=== PATIENT | female | born 1960 | race American Indian/Alaskan Native ===

== ENCOUNTER 2016-10-19 18:07 | Inpatient (IN) | payer MEDICARE ==
[2016-10-19] MEDS ORDERED: TORADOL IM ONE (22:02)
[2016-10-19] MEDS ORDERED: TORADOL ONE (22:02)
[2016-10-19] MEDS ORDERED: NORCO 5/325 PO ONE (22:07)
--- NOTE | 2016-10-19 22:10 | Emergency Department Report ---
Chief Complaint: Upper Respiratory Infection Stated Complaint: DARK BROWN URINE/MUSCLE ACHE - HPI History of Present Illness: Patient presents with multiple complaints including dark brown urine x 5 days, worsening body aches x 1 week, cough productive of greenish-yellow sputum, chest congestion, cold-chills, fever, nausea. States taking NyQuil. During MSE Patient stated to grab her left stomach stating she is having cramping pain due to her hernia. Reports hysterectomy many years ago. - Exam Vital Signs: Vital Signs 10/19/16 18:12 Temperature 97.6 F Pulse Rate 102 H Respiratory 18 Rate Blood Pressure 155/103 O2 Sat by Pulse 96 Oximetry Physical Exam: General: In some pain discomfort. NAD. Heart: RRR. Lungs: Equal sound b/l. MSE screening note: Focused history and physical exam performed. Due to findings the following was ordered: ED Medical Decision Making - Medical Decision Making Patient to be seen by MD in main ED. ED Disposition for MSE Condition: Stable
--- NOTE | 2016-10-19 22:50 | Cat Scan Report ---
FINAL REPORT EXAM: CT ABDOMEN PELVIS WO CON HISTORY: abdominal pain. COMPARISON: None available. TECHNIQUE: Contiguous axial images were obtained. Additional sagittal and coronal reformatted images were obtained. FINDINGS: Mild linear atelectasis or scarring at the lung bases. Gallbladder surgically absent. Dilatation of the common bile duct which may relate to patient's post cholecystectomy state measuring up to 12 millimeters. Liver, spleen, pancreas and adrenal glands are grossly unremarkable. No nephrolithiasis or hydronephrosis. Aorta and IVC normal in caliber. Mild calcification aorta. No distal ureteral or urinary bladder calculi. Multiple pelvic phleboliths which appear to be separate from the distal ureters. Prior hysterectomy. Mild scarring at the hysterectomy site. Moderate stool in the colon. The appendix is normal in caliber measuring 6 millimeters. Mild to moderate diverticulosis of left colon. No evidence of diverticulitis. Lumbar vertebral body heights preserved. Mild degenerative changes lumbar spine. Bony pelvis is grossly intact. IMPRESSION: No gross focal inflammatory changes of the abdomen and pelvis.
[2016-10-19 23:36] LABS: Bacteria,Urine 1+ /HPF (Negative); Bilirubin,Urine NEG (Negative); Blood,Urine LG (Negative); Ketones,Urine NEG (Negative); Leukocyte Esterase,Urine NEG (Negative); Mucus,Urine FEW /HPF; Nitrite,Urine NEG (Negative); RBC,Urine < 1.0 /HPF (0.0-6.0); Urobilinogen,Urine < 2.0 mg/dL (<2.0)
[2016-10-19] MEDS ORDERED: MORPHINE IV ONE (23:37)
[2016-10-19] MEDS ORDERED: NACL 0.9% 1000 ML 1,000 ML IV ONE (23:37)
[2016-10-19 23:39] LABS: Basophils % (Auto) 0.6 % (0.0-1.8); Eosinophils % (Auto) 0.9 % (0.0-4.3); Hematocrit 42.9 % (30.3-42.9); Hemoglobin 14.4 gm/dl (10.1-14.3); Mean Corpuscular HGB Conc 34 % (30-34); Mean Corpuscular Hemoglobin 29 pg (28-32); Mean Corpuscular Volume 86 fl (79-97); Platelet Count 430 K/mm3 (140-440); Red Cell Distribution Width 13.7 % (13.2-15.2); White Blood Count 7.3 K/mm3 (4.5-11.0)
[2016-10-19 23:40] LABS: Albumin 4.2 g/dL (3.9-5); Albumin/Globulin Ratio 1.2 %; BUN/Creatinine Ratio 15.83; Bilirubin,Total 0.4 mg/dL (0.1-1.2); Calcium 9.4 mg/dL (8.4-10.2); Chloride 98.9 mmol/L (98-107); Total Protein 7.7 g/dL (6.3-8.2)
--- NOTE | 2016-10-20 00:06 | Emergency Department Report ---
ED General Adult HPI - General Chief complaint: Upper Respiratory Infection Stated complaint: DARK BROWN URINE/MUSCLE ACHE Time Seen by Provider: 10/19/16 22:31 Source: patient Mode of arrival: Ambulatory Limitations: No Limitations - History of Present Illness Initial comments: This is a 56-year-old female, previously unknown to me. Her primary care doctor is Dr. Riggs, with [facility]. Past medical history includes diabetes, hypertension, DJD, chronic pain, thyroid disease, elevated cholesterol, for which she takes Crestor. Patient presents to the ER complaining of body aches, malaise, fever at home a few days ago to 102, cough, mucous production which is green, chest congestion , left upper quadrant abdominal discomfort, and dysuria. Symptoms are constant. They have no exacerbating or relieving factors. Reports that she recently got a flu vaccination. Symptoms have been present for greater than 3 days. No recent changes to medications. -: Gradual Severity scale (0 -10): 10 Quality: aching Consistency: intermittent Improves with: rest Worsens with: movement Associated Symptoms: cough, fever/chills, loss of appetite, malaise, weakness - Related Data Allergies Allergy/AdvReac Type Severity Reaction Status Date / Time morphine Allergy Itching Verified 10/20/16 00:31 ED Review of Systems ROS: Stated complaint: DARK BROWN URINE/MUSCLE ACHE Other details as noted in HPI Constitutional: fever, malaise, weakness Eyes: denies: vision change ENT: congestion Respiratory: cough Cardiovascular: denies: syncope Gastrointestinal: abdominal pain Genitourinary: dysuria, other (she admits to dark colored urine) Musculoskeletal: back pain, arthralgia, myalgia Neurological: weakness Psychiatric: anxiety ED Past Medical Hx - Past Medical History Hx Hypertension: Yes Hx Diabetes: Yes Hx Renal Disease: Yes Additional medical history: thyroid - Surgical History Past Surgical History?: Yes Hx Cholecystectomy: Yes Additional Surgical History: tubal,hysterectomy, right hand - Social History Smoking Status: Current Every Day Smoker Substance Use Type: Alcohol ED Physical Exam - General Limitations: No Limitations General appearance: alert, in no apparent distress - Head Head exam: Present: atraumatic, normocephalic - Eye Eye exam: Present: normal appearance, PERRL, EOMI, nystagmus - ENT ENT exam: Present: normal exam, normal orophraynx, mucous membranes moist, TM's normal bilaterally, normal external ear exam - Neck Neck exam: Present: normal inspection, full ROM. Absent: tenderness, meningismus - Respiratory Respiratory exam: Present: normal lung sounds bilaterally. Absent: respiratory distress, wheezes, rales, rhonchi, stridor, decreased breath sounds - Cardiovascular Cardiovascular Exam: Present: regular rate, normal rhythm, normal heart sounds. Absent: bradycardia, tachycardia, irregular rhythm, systolic murmur, diastolic murmur, rubs, gallop - GI/Abdominal GI/Abdominal exam: Present: soft, tenderness (minimal left upper quadrant tenderness, no rebound or guarding or peritoneal signs.), normal bowel sounds. Absent: distended, guarding, rebound, rigid, pulsatile mass - Extremities Exam Extremities exam: Present: normal inspection, full ROM, normal capillary refill , other (compartments are soft. There is no long bony tenderness. The gluteal compartments are soft. During the gluteal exam, I am escorted by nurse Ольга Jama). Absent: tenderness, pedal edema, joint swelling, calf tenderness - Back Exam Back exam: Present: normal inspection, full ROM, paraspinal tenderness. Absent : tenderness, CVA tenderness (R), CVA tenderness (L), muscle spasm - Neurological Exam Neurological exam: Present: alert, oriented X3, other (Extraocular movements intact. Tongue midline. No facial droop. Facial sensation intact to light touch in the V1, V2, V3 distribution bilaterally. 5 and 5 strength in 4 extremities.. Sensation is intact to light touch in 4 extremities.). Absent: motor sensory deficit - Psychiatric Psychiatric exam: Present: normal affect, normal mood - Skin Skin exam: Present: warm, dry, intact, normal color. Absent: rash ED Course Vital Signs 10/19/16 10/19/16 10/20/16 18:12 22:12 00:11 Temperature 97.6 F 98.4 F Pulse Rate 102 H 82 Respiratory 18 18 18 Rate Blood Pressure 155/103 Blood Pressure 123/83 [Left] O2 Sat by Pulse 96 99 Oximetry - Reevaluation(s) Reevaluation #1: Differential diagnosis: Viral syndrome, bronchitis, myositis, hepatitis, influenza-like illness, chronic hernia, constipation, urinary tract infection Assessment and plan: 56-year-old female with approximately one week of body aches, myalgias, intermittent fever, cough, mucus production. She is on a statin cholesterol medication. She is afebrile and the ER, with reassuring vital signs, tachycardia resolved. Laboratory studies indicate nonspecific transaminitis. The creatinine kinase is currently pending. Chest x-ray was unremarkable. A noncontrast CT scan of the abdomen and pelvis did not demonstrate any acute disease. I'm currently waiting the patient's creatinine kinase to determine if she meets criteria for rhabdomyolysis. She will be treated empirically with fluids, pain medication. Symptoms have been present for over a week, she is not a Tamiflu candidate, 10/20/16 00:04 10/20/16 00:35 Reevaluation #2: 10/20/16 00:35 Creatinine kinase 73,000. This is consistent with rhabdomyolysis. Patient is able to tolerate morphine, she gets some itching but no anaphylaxis. Case is discussed with the Hospital physician, Dr. Moser, who graciously accepts the patient to her service. ED Medical Decision Making - Lab Data Result diagrams: 10/19/16 22:53 10/19/16 22:53 Vital Signs 10/19/16 10/19/16 18:12 22:12 Temperature 97.6 F Pulse Rate 102 H Respiratory 18 18 Rate Blood Pressure 155/103 O2 Sat by Pulse 96 Oximetry Lab Results 10/19/16 10/19/16 10/19/16 Range/Units 22:53 22:53 23:09 WBC 7.3 (4.5-11.0) K/mm3 RBC 5.00 (3.65-5.03) M/mm3 Hgb 14.4 H (10.1-14.3) gm/dl Hct 42.9 (30.3-42.9) % MCV 86 (79-97) fl MCH 29 (28-32) pg MCHC 34 (30-34) % RDW 13.7 (13.2-15.2) % Plt Count 430 (140-440) K/mm3 Lymph % (Auto) 33.3 (13.4-35.0) % [place] % (Auto) 11.1 H (0.0-7.3) % Eos % (Auto) 0.9 (0.0-4.3) % Baso % (Auto) 0.6 (0.0-1.8) % Lymph # 2.4 (1.2-5.4) K/mm3 [place] # 0.8 (0.0-0.8) K/mm3 Eos # 0.1 (0.0-0.4) K/mm3 Baso # 0.0 (0.0-0.1) K/mm3 Seg Neutrophils % 54.1 (40.0-70.0) % Seg Neutrophils # 3.9 (1.8-7.7) K/mm3 Sodium 139 (137-145) mmol/L Potassium 4.0 (3.6-5.0) mmol/L Chloride 98.9 (98-107) mmol/L Carbon Dioxide 20 L (22-30) mmol/L Anion Gap 24 mmol/L BUN 19 H (7-17) mg/dL Creatinine 1.2 (0.7-1.2) mg/dL Estimated GFR 56 ml/min BUN/Creatinine Ratio 15.83 % Glucose 157 H (65-100) mg/dL Calcium 9.4 (8.4-10.2) mg/dL Total Bilirubin 0.4 (0.1-1.2) mg/dL AST 391 H (5-40) units/L ALT 104 H (7-56) units/L Alkaline Phosphatase 72 (35-129) units/L Total Protein 7.7 (6.3-8.2) g/dL Albumin 4.2 (3.9-5) g/dL Albumin/Globulin Ratio 1.2 % Lipase 44 (13-60) units/L Urine Color Yellow (Yellow) Urine Turbidity Clear (Clear) Urine pH 5.0 (5.0-7.0) Ur Specific [place] 1.009 (1.003-1.030) Urine Protein 30 mg/dl (Negative) mg/dL Urine Glucose (UA) Neg (Negative) mg/dL Urine Ketones Neg (Negative) mg/dL Urine Blood Lg (Negative) Urine Nitrite Neg (Negative) Urine Bilirubin Neg (Negative) Urine Urobilinogen < 2.0 (<2.0) mg/dL Ur Leukocyte Esterase Neg (Negative) Urine WBC (Auto) 8.0 H (0.0-6.0) /HPF Urine RBC (Auto) < 1.0 (0.0-6.0) /HPF Urine Bacteria (Auto) 1+ (Negative) /HPF Urine Mucus Few /HPF - Radiology Data Radiology results: report reviewed, image reviewed X-ray chest negative. Noncontrast CT scan of the abdomen and pelvis demonstrates constipation, normal appendix, pelvic phleboliths, status post hysterectomy, no acute disease. Critical care attestation.: If time is entered above; I have spent that time in minutes in the direct care of this critically ill patient, excluding procedure time. ED Disposition Clinical Impression: Rhabdomyolysis Qualifiers: Rhabdomyolysis type: non-traumatic Qualified Code(s): M62.82 - Rhabdomyolysis Disposition: OP ADMITTED IP TO THIS HOSP Is pt being admited?: Yes Condition: Good
[2016-10-20] MEDS ORDERED: NACL 0.9% 1000 ML 1,000 ML IV ONE (00:28)
[2016-10-20] MEDS ORDERED: NACL 0.9% 1000 ML 1,000 ML ONE (01:07)
[2016-10-20] MEDS ORDERED: DULCOLAX PR PRN (02:32)
[2016-10-20] MEDS ORDERED: TYLENOL PO PRN (02:32)
[2016-10-20] MEDS ORDERED: PERCOCET 5/325 PO PRN (02:32)
[2016-10-20] MEDS ORDERED: ZOFRAN IV PRN (02:32)
--- NOTE | 2016-10-20 02:35 | History and Physical Report ---
History of Present Illness Date of examination: 10/20/16 Date of admission: 10/20/16 00:37 History of present illness: 56-year-old woman history of hypertension, diabetes, chronic pain, hypothyroidism, hyperlipidemia, genital herpes comes emergency room because of pain in her muscles and all over body 1 week. Also complaining of dark urine 5 days. Patient has been on statin, 20 years. Denies trauma, heavy lifting Patient denies chest pain, palpitation, shortness of breath, cough, abdominal pain, hematochezia, dysuria, frequency, focal weakness, dysarthria, fever chills , polydipsia polyuria, hot or cold intolerance, easy bruisability, or rash or bleeding from mucosal membrane, rhinorrhea, epistaxis, earache, tinnitus, blurry vision, eye discharge, anxiety, depression. Other review of systems negative PAST SURGICAL HISTORY: Cholecystectomy, tubal ligation, hysterectomy, right hand and right shoulder SOCIAL HISTORY: Denies alcohol, tobacco, drugs FAMILY HISTORY: Hypertension Medications and Allergies Allergies Allergy/AdvReac Type Severity Reaction Status Date / Time morphine AdvReac Itching Verified 10/20/16 00:39 Active Meds: Active Medications Acetaminophen (Tylenol) 650 mg PO Q4H PRN PRN Reason: Pain MILD(1-3)/Fever >100.5/GROSS Bisacodyl (Dulcolax) 10 mg ME QDAY PRN PRN Reason: Constipation unrelieved by MOM Sodium Chloride (Nacl 0.9% 1000 Ml) 1,000 mls @ 150 mls/hr IV DIRECT RAINA Magnesium Hydroxide (Milk Of Magnesia) 30 ml PO Q4H PRN PRN Reason: Constipation Mineral Oil (Fleet Mineral Oil) 133 ml ME ONCE ONE Stop: 10/20/16 02:33 Ondansetron HCl (Zofran) 4 mg IV Q8H PRN PRN Reason: N/V unrelieved by Reglan Oxycodone/Acetaminophen (Percocet 5/325) 1 tab PO Q6H PRN PRN Reason: Pain, Moderate (4-6) Exam - Physical Exam Narrative exam: Gen. appearance: Patient lying in bed, no apparent distress HEENT: Normocephalic, atraumatic, pupils equally round and reactive to light, extraocular movement intact, and no sclericterus,. No JVD or thyromegaly or nodule,neck supple, no carotid bruit ,mucous membranes moist, no exudate or erythema Heart: S1, S2, regular rate and rhythm Lungs: Clear to auscultation bilaterally, breathing comfortable Abdomen: Positive bowel sounds, nontender, nondistended, no organomegaly Extremity: No edema, cyanosis, clubbing Skin: No rash, nodules, warm, dry Neuro: Oriented 3, cranial nerves II-12 intact, speech is fluent, motor and sensory intact - Constitutional Vitals: Temp Pulse Resp BP Pulse Ox 97.8 F 72 18 127/75 98 10/20/16 02:27 10/20/16 02:27 10/20/16 02:27 10/20/16 02:27 10/20/16 02:27 Results - Labs CBC & Chem 7: 10/19/16 22:53 10/19/16 22:53 Assessment and Plan Rhabdomyolysis most likely secondary to statin Diabetes type 2 Hyperlipidemia Hypothyroidism Admits medicine Start aggressive IV fluid, monitor CK levels Check fingersticks and initiate insulin sliding scale Continue appropriate outpatient medications, start DVT prophylaxis
[2016-10-20] MEDS ORDERED: FLEET MINERAL OIL PR ONE (03:00)
[2016-10-20] MEDS ORDERED: NACL 0.9% 1000 ML 1,000 ML IV SCH (03:00)
[2016-10-20] MEDS ORDERED: SYNTHROID PO SCH (06:00)
[2016-10-20] MEDS: MILK OF MAGNESIA PO PRN (07:36)
[2016-10-20] MEDS ORDERED: ACETAMINOPHEN PO PRN (09:10)
[2016-10-20] MEDS ORDERED: POLYETHYLENE GLYCOL PO PRN (09:10)
[2016-10-20] MEDS ORDERED: HYDROCODONE PO PRN (09:10)
--- NOTE | 2016-10-20 09:42 | XRay Report ---
Single view chest: History: Shortness of breath. Findings: Normal cardiomediastinal silhouette the trachea is midline. Faint ill-defined density superior aspect of right hilum probably infiltrate or discoid atelectasis. Normal CP angles. Impression: Ill-defined density superior aspect of the right hilum probably focal pneumonitis.
[2016-10-20] MEDS ORDERED: [UNRECOGNIZED DRUG - OTHER] SQ SCH (10:00)
[2016-10-20] MEDS ORDERED: NON-FORMULARY (Omeprazole 40 MG) PO SCH (10:00)
[2016-10-20] MEDS ORDERED: CHOLECALCIFEROL 1000 UNIT PO SCH (10:00)
[2016-10-20] MEDS ORDERED: NON-FORMULARY (Amlodipine 10 MG) PO SCH (10:00)
[2016-10-20] MEDS ORDERED: NON-FORMULARY (Aspirin 81 MG) PO SCH (10:00)
[2016-10-20] MEDS ORDERED: LIRAGLUTIDE SQ SCH (10:00)
[2016-10-20] MEDS ORDERED: LEVOTHYROXINE 0.1 MG PO SCH ×2 (10:00)
[2016-10-20] MEDS ORDERED: NON-FORMULARY (Losartan 100 MG) PO SCH (10:00)
[2016-10-20] MEDS: VITAMIN D3 PO SCH (10:17)
[2016-10-20] MEDS: BABY ASPIRIN PO SCH (10:17)
[2016-10-20] MEDS: NORVASC PO SCH (10:20)
[2016-10-20] MEDS: COZAAR PO SCH (10:22)
[2016-10-20] MEDS: SYNTHROID PO SCH (10:23)
[2016-10-20] MEDS: PROTONIX PO SCH (10:24)
[2016-10-20] MEDS: NORCO 10/325 PO PRN ×2 (10:29→23:03)
[2016-10-20 10:38] LABS: Creatine Kinase MB 4.6 ng/mL (0.0-4.0)
[2016-10-20] MEDS ORDERED: MIRALAX 3350 PO PRN (11:00)
[2016-10-20] MEDS: NOVOLOG SUB-Q SCH ×3 (11:40→22:50)
[2016-10-20] MEDS ORDERED: PNEUMOVAX 23 IM ONE (12:00)
--- NOTE | 2016-10-20 14:08 | Event Note ---
Date: 10/20/16 Patient is admitted for rhabdomyolysis of unknown cause and on IV fluid resuscitation.
[2016-10-20] MEDS: NACL 0.9% 1000 ML 3,000 ML IV SCH ×2 (16:47→22:51)
[2016-10-20] MEDS ORDERED: LEVEMIR SUB-Q SCH (22:00)
[2016-10-20] MEDS ORDERED: LANTUS SQ SCH (22:00)
[2016-10-20] MEDS: NON-FORMULARY SUB-Q SCH (22:51)
[2016-10-21] MEDS: NACL 0.9% 1000 ML 3,000 ML IV SCH ×3 (05:00→19:04)
[2016-10-21] MEDS: SYNTHROID PO SCH (05:53)
[2016-10-21 05:54] LABS: Basophils % (Auto) 0.8 % (0.0-1.8); Eosinophils % (Auto) 2.1 % (0.0-4.3); Hematocrit 36.6 % (30.3-42.9); Mean Corpuscular HGB Conc 33 % (30-34); Mean Corpuscular Hemoglobin 29 pg (28-32); Mean Corpuscular Volume 87 fl (79-97); Platelet Count 333 K/mm3 (140-440); Red Blood Count 4.23 M/mm3 (3.65-5.03); Red Cell Distribution Width 13.8 % (13.2-15.2); White Blood Count 4.8 K/mm3 (4.5-11.0)
[2016-10-21] MEDS: MILK OF MAGNESIA PO PRN (05:55)
[2016-10-21] MEDS ORDERED: SYNTHROID PO SCH (06:00)
[2016-10-21 06:13] LABS: Anion Gap 13 mmol/L; BUN/Creatinine Ratio 13.33; Blood Urea Nitrogen 12 mg/dL (7-17); Calcium 8.7 mg/dL (8.4-10.2); Carbon Dioxide 25 mmol/L (22-30); Chloride 103.2 mmol/L (98-107); Glucose 96 mg/dL (65-100); Potassium 4.3 mmol/L (3.6-5.0); Sodium 137 mmol/L (137-145)
[2016-10-21 06:27] LABS: Creatine Kinase 62027 units/L (30-135)
[2016-10-21] MEDS: NOVOLOG SUB-Q SCH ×4 (08:00→23:05)
[2016-10-21] MEDS: NON-FORMULARY SUB-Q SCH ×2 (08:30→22:45)
[2016-10-21] MEDS: BABY ASPIRIN PO SCH (09:52)
[2016-10-21] MEDS: PROTONIX PO SCH (09:52)
[2016-10-21] MEDS: COZAAR PO SCH (09:53)
[2016-10-21] MEDS: NORVASC PO SCH (09:54)
[2016-10-21] MEDS: VITAMIN D3 PO SCH (09:55)
[2016-10-21] MEDS ORDERED: APRESOLINE PO PRN (14:25)
--- NOTE | 2016-10-21 14:26 | Progress Note ---
Assessment and Plan Assessment and plan: Rhabdomyolysis - Vision changes on IV fluid - There is slight decrease in CK - We'll follow CK and discharge once below 5000 - Continue to hold statin - Creatinine is within normal limit Uncontrolled hypertension - Continue on medications - When necessary hydralazine - Likely from the fluid we are giving Prophylaxis - Lovenox Disposition Plan: we'll discharge her once her CK is below 5000 History Interval history: Patient was seen and evaluated this morning. Should still complains muscle soreness. Hospitalist Physical - Physical exam Narrative exam: Not in cardiopulmonary distress. The patient is obese. Vital signs as documented. Head exam is unremarkable. No scleral icterus . Neck is without jugular venous distension, thyromegaly, or carotid bruits. Lungs are clear to auscultation. Cardiac exam reveals regular rate and Rhythm. First and second heart sounds normal. No murmurs, rubs or gallops. Abdominal exam reveals normal bowel sounds, no masses, no organomegaly and no aortic enlargement. Extremities mild tenderness on the muscles of both upper and lower extremities. COPYHOLDER: Alert and oriented 3. No focal weakness. - Constitutional Vitals: Temp Pulse Resp BP Pulse Ox 97.9 F 58 L 20 174/100 97 10/21/16 08:50 10/21/16 09:54 10/21/16 08:50 10/21/16 09:54 10/21/16 10:00 Results - Labs CBC & Chem 7: 10/21/16 05:32 10/21/16 05:32 Labs: Laboratory Last Values WBC 4.8 K/mm3 (4.5-11.0) 10/21/16 05:32 RBC 4.23 M/mm3 (3.65-5.03) 10/21/16 05:32 Hgb 12.0 gm/dl (10.1-14.3) 10/21/16 05:32 Hct 36.6 % (30.3-42.9) D 10/21/16 05:32 MCV 87 fl (79-97) 10/21/16 05:32 MCH 29 pg (28-32) 10/21/16 05:32 MCHC 33 % (30-34) 10/21/16 05:32 RDW 13.8 % (13.2-15.2) 10/21/16 05:32 Plt Count 333 K/mm3 (140-440) 10/21/16 05:32 Lymph % (Auto) 41.7 % (13.4-35.0) H 10/21/16 05:32 [place] % (Auto) 15.0 % (0.0-7.3) H 10/21/16 05:32 Eos % (Auto) 2.1 % (0.0-4.3) 10/21/16 05:32 Baso % (Auto) 0.8 % (0.0-1.8) 10/21/16 05:32 Lymph # 2.0 K/mm3 (1.2-5.4) 10/21/16 05:32 [place] # 0.7 K/mm3 (0.0-0.8) 10/21/16 05:32 Eos # 0.1 K/mm3 (0.0-0.4) 10/21/16 05:32 Baso # 0.0 K/mm3 (0.0-0.1) 10/21/16 05:32 Seg Neutrophils % 40.4 % (40.0-70.0) 10/21/16 05:32 Seg Neutrophils # 1.9 K/mm3 (1.8-7.7) 10/21/16 05:32 Sodium 137 mmol/L (137-145) 10/21/16 05:32 Potassium 4.3 mmol/L (3.6-5.0) 10/21/16 05:32 Chloride 103.2 mmol/L (98-107) 10/21/16 05:32 Carbon Dioxide 25 mmol/L (22-30) 10/21/16 05:32 Anion Gap 13 mmol/L 10/21/16 05:32 BUN 12 mg/dL (7-17) 10/21/16 05:32 Creatinine 0.9 mg/dL (0.7-1.2) 10/21/16 05:32 Estimated GFR > 60 ml/min 10/21/16 05:32 BUN/Creatinine Ratio 13.33 % 10/21/16 05:32 Glucose 96 mg/dL (65-100) 10/21/16 05:32 POC Glucose 130 (70-105) H 10/21/16 11:13 Calcium 8.7 mg/dL (8.4-10.2) 10/21/16 05:32 Total Bilirubin 0.4 mg/dL (0.1-1.2) 10/19/16 22:53 AST 391 units/L (5-40) H 10/19/16 22:53 ALT 104 units/L (7-56) H 10/19/16 22:53 Alkaline Phosphatase 72 units/L (35-129) 10/19/16 22:53 Total Creatine Kinase 22710 units/L (30-135) H 10/21/16 05:32 CK-MB (CK-2) 4.6 ng/mL (0.0-4.0) H 10/20/16 09:39 CK-MB (CK-2) Rel Index 0.0 (0-4) 10/20/16 09:39 Total Protein 7.7 g/dL (6.3-8.2) 10/19/16 22:53 Albumin 4.2 g/dL (3.9-5) 10/19/16 22:53 Albumin/Globulin Ratio 1.2 % 10/19/16 22:53 Lipase 44 units/L (13-60) 10/19/16 22:53 Urine Color Yellow (Yellow) 10/19/16 23:09 Urine Turbidity Clear (Clear) 10/19/16 23:09 Urine pH 5.0 (5.0-7.0) 10/19/16 23:09 Ur Specific [place] 1.009 (1.003-1.030) 10/19/16 23:09 Urine Protein 30 mg/dl mg/dL (Negative) 10/19/16 23:09 Urine Glucose (UA) Neg mg/dL (Negative) 10/19/16 23:09 Urine Ketones Neg mg/dL (Negative) 10/19/16 23:09 Urine Blood Lg (Negative) 10/19/16 23:09 Urine Nitrite Neg (Negative) 10/19/16 23:09 Urine Bilirubin Neg (Negative) 10/19/16 23:09 Urine Urobilinogen < 2.0 mg/dL (<2.0) 10/19/16 23:09 Ur Leukocyte Esterase Neg (Negative) 10/19/16 23:09 Urine WBC (Auto) 8.0 /HPF (0.0-6.0) H 10/19/16 23:09 Urine RBC (Auto) < 1.0 /HPF (0.0-6.0) 10/19/16 23:09 Urine Bacteria (Auto) 1+ /HPF (Negative) 10/19/16 23:09 Urine Mucus Few /HPF 10/19/16 23:09
[2016-10-22] MEDS: NACL 0.9% 1000 ML 3,000 ML IV SCH (03:49)
[2016-10-22 06:25] LABS: Anion Gap 15 mmol/L; BUN/Creatinine Ratio 12.22; Blood Urea Nitrogen 11 mg/dL (7-17); Calcium 8.8 mg/dL (8.4-10.2); Carbon Dioxide 26 mmol/L (22-30); Chloride 101.5 mmol/L (98-107); Glucose 86 mg/dL (65-100); Potassium 4.1 mmol/L (3.6-5.0); Sodium 138 mmol/L (137-145)
[2016-10-22] MEDS: SYNTHROID PO SCH (06:34)
[2016-10-22 06:38] LABS: Creatine Kinase 38547 units/L (30-135)
[2016-10-22] MEDS: NOVOLOG SUB-Q SCH ×3 (08:01→17:34)
[2016-10-22] MEDS: NON-FORMULARY SUB-Q SCH (08:02)
[2016-10-22] MEDS: COZAAR PO SCH (09:56)
[2016-10-22] MEDS: VITAMIN D3 PO SCH (09:57)
[2016-10-22] MEDS: NORVASC PO SCH (09:57)
[2016-10-22] MEDS: BABY ASPIRIN PO SCH (09:58)
[2016-10-22] MEDS: PROTONIX PO SCH (09:58)
[2016-10-22] MEDS ORDERED: SODIUM BICARBONATE 150 MEQ in D5W 1,000 ML IV SCH (11:00)
[2016-10-23] MEDS ORDERED: NACL 0.45% 1000 ML 1,000 ML IV ONE (11:01)
--- NOTE | 2016-10-23 15:12 | Progress Note ---
Assessment and Plan - Patient Problems (1) Rhabdomyolysis Current Visit: Yes Status: Acute Qualifiers: Rhabdomyolysis type: R Encounter type: E Plan to address problem: IVF, bicarb drip, supportive care. (2) DVT prophylaxis Current Visit: Yes Status: Acute History Interval history: Pt resting comfortable in bed, Pt complains of muscle soreness, and generalized body aches. No reported nursing events. Pt denies fever, chills, cough, CP, Palpitations, NVD, leg swelling, calf pain. Hospitalist Physical - Constitutional Vitals: Temp Pulse Resp BP Pulse Ox 97.6 F 56 L 20 139/84 98 10/22/16 23:50 10/22/16 23:50 10/22/16 23:50 10/22/16 23:50 10/22/16 23:50 General appearance: Present: no acute distress - EENT Eyes: Present: PERRL ENT: hearing intact - Neck Neck: Present: supple - Respiratory Respiratory: bilateral: CTA - Cardiovascular Rhythm: regular Heart Sounds: Present: S1 & S2 - Extremities Extremities: no ischemia Peripheral Pulses: within normal limits - Abdominal General gastrointestinal: soft, non-tender, non-distended - Integumentary Integumentary: Present: clear, warm, dry - Psychiatric Psychiatric: appropriate mood/affect, cooperative - Neurologic Neurologic: CNII-XII intact Results - Labs CBC & Chem 7: 10/21/16 05:32 10/22/16 05:10 Labs: Laboratory Last Values WBC 4.8 K/mm3 (4.5-11.0) 10/21/16 05:32 RBC 4.23 M/mm3 (3.65-5.03) 10/21/16 05:32 Hgb 12.0 gm/dl (10.1-14.3) 10/21/16 05:32 Hct 36.6 % (30.3-42.9) D 10/21/16 05:32 MCV 87 fl (79-97) 10/21/16 05:32 MCH 29 pg (28-32) 10/21/16 05:32 MCHC 33 % (30-34) 10/21/16 05:32 RDW 13.8 % (13.2-15.2) 10/21/16 05:32 Plt Count 333 K/mm3 (140-440) 10/21/16 05:32 Lymph % (Auto) 41.7 % (13.4-35.0) H 10/21/16 05:32 [place] % (Auto) 15.0 % (0.0-7.3) H 10/21/16 05:32 Eos % (Auto) 2.1 % (0.0-4.3) 10/21/16 05:32 Baso % (Auto) 0.8 % (0.0-1.8) 10/21/16 05:32 Lymph # 2.0 K/mm3 (1.2-5.4) 10/21/16 05:32 [place] # 0.7 K/mm3 (0.0-0.8) 10/21/16 05:32 Eos # 0.1 K/mm3 (0.0-0.4) 10/21/16 05:32 Baso # 0.0 K/mm3 (0.0-0.1) 10/21/16 05:32 Seg Neutrophils % 40.4 % (40.0-70.0) 10/21/16 05:32 Seg Neutrophils # 1.9 K/mm3 (1.8-7.7) 10/21/16 05:32 Sodium 138 mmol/L (137-145) 10/22/16 05:10 Potassium 4.1 mmol/L (3.6-5.0) 10/22/16 05:10 Chloride 101.5 mmol/L (98-107) 10/22/16 05:10 Carbon Dioxide 26 mmol/L (22-30) 10/22/16 05:10 Anion Gap 13 mmol/L 10/21/16 05:32 BUN 11 mg/dL (7-17) 10/22/16 05:10 Creatinine 0.9 mg/dL (0.7-1.2) 10/22/16 05:10 Estimated GFR > 60 ml/min 10/22/16 05:10 BUN/Creatinine Ratio 12.22 % 10/22/16 05:10 Glucose 86 mg/dL (65-100) 10/22/16 05:10 POC Glucose 198 (70-105) H 10/23/16 12:10 Calcium 8.8 mg/dL (8.4-10.2) 10/22/16 05:10 Total Bilirubin 0.4 mg/dL (0.1-1.2) 10/19/16 22:53 AST 391 units/L (5-40) H 10/19/16 22:53 ALT 104 units/L (7-56) H 10/19/16 22:53 Alkaline Phosphatase 72 units/L (35-129) 10/19/16 22:53 Total Creatine Kinase 66470 units/L (30-135) H 10/22/16 05:10 CK-MB (CK-2) 4.6 ng/mL (0.0-4.0) H 10/20/16 09:39 CK-MB (CK-2) Rel Index 0.0 (0-4) 10/20/16 09:39 Total Protein 7.7 g/dL (6.3-8.2) 10/19/16 22:53 Albumin 4.2 g/dL (3.9-5) 10/19/16 22:53 Albumin/Globulin Ratio 1.2 % 10/19/16 22:53 Lipase 44 units/L (13-60) 10/19/16 22:53 Urine Color Yellow (Yellow) 10/19/16 23:09 Urine Turbidity Clear (Clear) 10/19/16 23:09 Urine pH 5.0 (5.0-7.0) 10/19/16 23:09 Ur Specific [place] 1.009 (1.003-1.030) 10/19/16 23:09 Urine Protein 30 mg/dl mg/dL (Negative) 10/19/16 23:09 Urine Glucose (UA) Neg mg/dL (Negative) 10/19/16 23:09 Urine Ketones Neg mg/dL (Negative) 10/19/16 23:09 Urine Blood Lg (Negative) 10/19/16 23:09 Urine Nitrite Neg (Negative) 10/19/16 23:09 Urine Bilirubin Neg (Negative) 10/19/16 23:09 Urine Urobilinogen < 2.0 mg/dL (<2.0) 10/19/16 23:09 Ur Leukocyte Esterase Neg (Negative) 10/19/16 23:09 Urine WBC (Auto) 8.0 /HPF (0.0-6.0) H 10/19/16 23:09 Urine RBC (Auto) < 1.0 /HPF (0.0-6.0) 10/19/16 23:09 Urine Bacteria (Auto) 1+ /HPF (Negative) 10/19/16 23:09 Urine Mucus Few /HPF 10/19/16 23:09
--- NOTE | 2016-10-23 16:08 | Progress Note ---
Assessment and Plan - Patient Problems (1) Rhabdomyolysis Current Visit: Yes Status: Acute Qualifiers: Rhabdomyolysis type: R Encounter type: E Plan to address problem: IVF, bicarb drip, supportive care. (2) DVT prophylaxis Current Visit: Yes Status: Acute History Interval history: Pt resting comfortable in bed, Pt complains of muscle soreness, and generalized body aches. No reported nursing events. Pt denies fever, chills, cough, CP, Palpitations, NVD, leg swelling, calf pain. Hospitalist Physical - Constitutional Vitals: Temp Pulse Resp BP Pulse Ox 97.6 F 56 L 20 139/84 98 10/22/16 23:50 10/22/16 23:50 10/22/16 23:50 10/22/16 23:50 10/22/16 23:50 General appearance: Present: no acute distress - EENT Eyes: Present: PERRL, EOM intact ENT: hearing intact - Neck Neck: Present: supple - Respiratory Respiratory effort: normal Respiratory: bilateral: CTA - Cardiovascular Rhythm: regular Heart Sounds: Present: S1 & S2 - Extremities Extremities: no ischemia Peripheral Pulses: within normal limits - Abdominal General gastrointestinal: soft, non-tender, non-distended - Integumentary Integumentary: Present: clear, dry - Psychiatric Psychiatric: appropriate mood/affect, cooperative - Neurologic Neurologic: CNII-XII intact Results - Labs CBC & Chem 7: 10/21/16 05:32 10/22/16 05:10 Labs: Laboratory Last Values WBC 4.8 K/mm3 (4.5-11.0) 10/21/16 05:32 RBC 4.23 M/mm3 (3.65-5.03) 10/21/16 05:32 Hgb 12.0 gm/dl (10.1-14.3) 10/21/16 05:32 Hct 36.6 % (30.3-42.9) D 10/21/16 05:32 MCV 87 fl (79-97) 10/21/16 05:32 MCH 29 pg (28-32) 10/21/16 05:32 MCHC 33 % (30-34) 10/21/16 05:32 RDW 13.8 % (13.2-15.2) 10/21/16 05:32 Plt Count 333 K/mm3 (140-440) 10/21/16 05:32 Lymph % (Auto) 41.7 % (13.4-35.0) H 10/21/16 05:32 [place] % (Auto) 15.0 % (0.0-7.3) H 10/21/16 05:32 Eos % (Auto) 2.1 % (0.0-4.3) 10/21/16 05:32 Baso % (Auto) 0.8 % (0.0-1.8) 10/21/16 05:32 Lymph # 2.0 K/mm3 (1.2-5.4) 10/21/16 05:32 [place] # 0.7 K/mm3 (0.0-0.8) 10/21/16 05:32 Eos # 0.1 K/mm3 (0.0-0.4) 10/21/16 05:32 Baso # 0.0 K/mm3 (0.0-0.1) 10/21/16 05:32 Seg Neutrophils % 40.4 % (40.0-70.0) 10/21/16 05:32 Seg Neutrophils # 1.9 K/mm3 (1.8-7.7) 10/21/16 05:32 Sodium 138 mmol/L (137-145) 10/22/16 05:10 Potassium 4.1 mmol/L (3.6-5.0) 10/22/16 05:10 Chloride 101.5 mmol/L (98-107) 10/22/16 05:10 Carbon Dioxide 26 mmol/L (22-30) 10/22/16 05:10 Anion Gap 13 mmol/L 10/21/16 05:32 BUN 11 mg/dL (7-17) 10/22/16 05:10 Creatinine 0.9 mg/dL (0.7-1.2) 10/22/16 05:10 Estimated GFR > 60 ml/min 10/22/16 05:10 BUN/Creatinine Ratio 12.22 % 10/22/16 05:10 Glucose 86 mg/dL (65-100) 10/22/16 05:10 POC Glucose 198 (70-105) H 10/23/16 12:10 Calcium 8.8 mg/dL (8.4-10.2) 10/22/16 05:10 Total Bilirubin 0.4 mg/dL (0.1-1.2) 10/19/16 22:53 AST 391 units/L (5-40) H 10/19/16 22:53 ALT 104 units/L (7-56) H 10/19/16 22:53 Alkaline Phosphatase 72 units/L (35-129) 10/19/16 22:53 Total Creatine Kinase 70596 units/L (30-135) H 10/22/16 05:10 CK-MB (CK-2) 4.6 ng/mL (0.0-4.0) H 10/20/16 09:39 CK-MB (CK-2) Rel Index 0.0 (0-4) 10/20/16 09:39 Total Protein 7.7 g/dL (6.3-8.2) 10/19/16 22:53 Albumin 4.2 g/dL (3.9-5) 10/19/16 22:53 Albumin/Globulin Ratio 1.2 % 10/19/16 22:53 Lipase 44 units/L (13-60) 10/19/16 22:53 Urine Color Yellow (Yellow) 10/19/16 23:09 Urine Turbidity Clear (Clear) 10/19/16 23:09 Urine pH 5.0 (5.0-7.0) 10/19/16 23:09 Ur Specific [place] 1.009 (1.003-1.030) 10/19/16 23:09 Urine Protein 30 mg/dl mg/dL (Negative) 10/19/16 23:09 Urine Glucose (UA) Neg mg/dL (Negative) 10/19/16 23:09 Urine Ketones Neg mg/dL (Negative) 10/19/16 23:09 Urine Blood Lg (Negative) 10/19/16 23:09 Urine Nitrite Neg (Negative) 10/19/16 23:09 Urine Bilirubin Neg (Negative) 10/19/16 23:09 Urine Urobilinogen < 2.0 mg/dL (<2.0) 10/19/16 23:09 Ur Leukocyte Esterase Neg (Negative) 10/19/16 23:09 Urine WBC (Auto) 8.0 /HPF (0.0-6.0) H 10/19/16 23:09 Urine RBC (Auto) < 1.0 /HPF (0.0-6.0) 10/19/16 23:09 Urine Bacteria (Auto) 1+ /HPF (Negative) 10/19/16 23:09 Urine Mucus Few /HPF 10/19/16 23:09
[2016-10-23] MEDS: NOVOLOG SUB-Q SCH ×5 (17:26→22:27)
[2016-10-23] MEDS: SYNTHROID PO SCH (17:30)
[2016-10-23] MEDS: BABY ASPIRIN PO SCH (17:31)
[2016-10-23] MEDS: COZAAR PO SCH (17:31)
[2016-10-23] MEDS: NON-FORMULARY SUB-Q SCH ×2 (17:31→22:30)
[2016-10-23] MEDS: PROTONIX PO SCH (17:32)
[2016-10-23] MEDS: NORVASC PO SCH (17:32)
[2016-10-23] MEDS: VITAMIN D3 PO SCH (17:33)
[2016-10-23] MEDS: NACL 0.45% 1000 ML 1,000 ML IV SCH (18:03)
[2016-10-24] MEDS: NACL 0.45% 1000 ML 1,000 ML IV SCH ×2 (00:55→07:06)
[2016-10-24] MEDS: SYNTHROID PO SCH (06:12)
[2016-10-24] MEDS: NOVOLOG SUB-Q SCH ×2 (08:33→13:11)
[2016-10-24] MEDS: NON-FORMULARY SUB-Q SCH (08:36)
[2016-10-24 10:11] VITALS: BP 128/79
[2016-10-24] MEDS: NORVASC PO SCH (10:32)
[2016-10-24] MEDS: PROTONIX PO SCH (10:33)
[2016-10-24] MEDS: VITAMIN D3 PO SCH (10:33)
[2016-10-24] MEDS: COZAAR PO SCH (10:33)
[2016-10-24] MEDS: BABY ASPIRIN PO SCH (10:33)
--- NOTE | 2016-10-24 12:00 | Discharge Summary ---
Providers - Providers Date of Admission: 10/20/16 00:37 Attending physician: HEAVEN KOCH Primary care physician: KI CRUZ Hospitalization Condition: Good Disposition: STILL A PATIENT - Discharge Diagnoses (1) Rhabdomyolysis Status: Acute Qualifiers: Rhabdomyolysis type: R Encounter type: E (2) DVT prophylaxis Status: Acute Exam - Constitutional Vitals: Temp Pulse Resp BP Pulse Ox 98.3 F 56 L 20 128/79 100 10/24/16 08:00 10/24/16 08:00 10/24/16 08:00 10/24/16 08:00 10/24/16 08:00 Plan Follow up with: PRIMARY CAREMD [Referring] - 3-5 Days
== END 2016-10-24 15:00 | disposition home or self-care (01) | DRG 558 ==
LOC: ED 18:07 → 3A 10-20 00:37
PROVIDERS: ADMIT Internal Medicine; ATTEND Internal Medicine
DX: M62.82 Rhabdomyolysis (principal); Z68.41 Body mass index [BMI] 40.0-44.9, adult; E11.9 Type 2 diabetes mellitus without complications; E03.9 Hypothyroidism, unspecified; E78.5 Hyperlipidemia, unspecified; E66.01 Morbid (severe) obesity due to excess calories; Z71.3 Dietary counseling and surveillance; I10 Essential (primary) hypertension; Z90.49 Acquired absence of other specified parts of digestive tract; Z90.710 Acquired absence of both cervix and uterus; Z82.49 Family history of ischemic heart disease and other diseases of the circulatory system; T46.6X5A Adverse effect of antihyperlipidemic and antiarteriosclerotic drugs, initial encounter
CPT/HCPCS: 36415; 71020; 74176; 80048; 80053; 81001; 82550; 82553; 82962; 83690; 85025; 90732; 96361; 96374; 99406; J1815; J1818; J1885; J2270; J7030; J7070